=== PATIENT | female | born 1980 | race Caucasian/White ===

== ENCOUNTER 2021-07-21 08:56 | Emergency (ER) | payer BC, SELFPAY ==
[2021-07-21 09:02] VITALS: BP 119/76; PULSE 77; RESP 14; TEMP 36.6; O2SAT 98
[2021-07-21 09:10] VITALS: BP 119/76; PULSE 77; RESP 14; TEMP 36.6; O2SAT 98
--- NOTE | 2021-07-21 09:30 | ED.URI ---
HPI - URI/Sore Throat General Chief Complaint: Upper Respiratory Infection Stated Complaint: sinus congestion Time Seen by Provider: 07/21/21 09:21 Source: patient and RN notes reviewed Mode of arrival: ambulatory Limitations: no limitations History of Present Illness HPI Narrative: Patient presents today complaining of a 2-week history of nasal congestion, rhinorrhea, sinus pressure. She has tried Sudafed, Mucinex, Claritin, Zyrtec, Flonase. Symptoms are no longer improving. Denies sore throat, cough, fever. MD elicited complaint: rhinorrhea, nasal congestion and sinus pain Related Data Allergies Allergy/AdvReac Type Severity Reaction Status Date / Time No Known Allergies Allergy Verified 07/21/21 09:09 Review of Systems Review of Systems: CONSTITUTIONAL: Denies body aches, fever, chills, or sweats. EYES: Denies visual changes, redness, or discharge. ENT: Denies sore throat, or otalgia.+ Rhinorrhea, congestion, sinus pressure, sneezing CARDIOVASCULAR: Denies chest pain, palpitations, or edema. RESPIRATORY: Denies cough or dyspnea. GASTROINTESTINAL: Denies abdominal pain, nausea, vomiting, or diarrhea. GENITOURINARY: Denies dysuria or hematuria. SKIN: Denies rash, itching, or wounds. MUSCULOSKELETAL: Denies back pain, joint pain, or myalgia. NEUROLOGIC: Denies headache, numbness, tingling, or weakness. PSYCH: Denies depression or anxiety. PMFSH Comments At time of signature, I have reviewed and agree with nursing past medical, surgical, social and family history unless otherwise noted. Please see nursing chart for further information. There is no relevant family history pertinent to the presenting complaint Exam Narrative: GENERAL: Well-appearing, well-nourished, and in no acute distress. HEAD: Normocephalic, atraumatic. EYES: EOMI. No redness or drainage. Conjunctivae normal. ENT: Mucous membranes pink and moist. Nares congested. Bilateral swollen and erythematous nasal turbinates with purulent discharge. TMs normal bilaterally. Throat normal. Uvula midline. NECK: Normal AROM. Supple. No lymphadenopathy. CHEST: No respiratory distress. Clear to auscultation. HEART: Regular rate and rhythm. No murmur appreciated. Normal peripheral pulses. EXTREMITIES: Normal range of motion. No edema. SKIN: Warm, dry, no rash. Capillary refill normal. Normal skin turgor. NEURO: No focal deficits. Alert and oriented x3. Gait steady. PSYCH: Normal affect. No signs of depression or anxiety. Course Vital Signs Vital signs: Vital Signs Temperature 97.9 F 07/21/21 09:02 Pulse Rate 77 07/21/21 09:02 Respiratory Rate 14 07/21/21 09:02 Blood Pressure 119/76 07/21/21 09:02 Pulse Oximetry 98 07/21/21 09:02 Temperature 97.9 F 07/21/21 09:10 Pulse Rate 77 07/21/21 09:10 Respiratory Rate 14 07/21/21 09:10 Blood Pressure 119/76 07/21/21 09:10 Pulse Oximetry 98 07/21/21 09:10 Reviewed. Pt has been instructed to follow up with his PCP regarding his elevated blood pressure today. MDM - URI/Sore Throat Differential Diagnosis Differential diagnosis: Likely upper respiratory infection, otitis media, sinusitis, viral infection and other (Rhinitis) Critical Care Time Critical Care Time Critical Care Time: No Discharge Plan Discharge Clinical Impression: Sinusitis Qualifiers: Sinusitis location: unspecified location Chronicity: acute Recurrence: non-recurrent Qualified Code(s): J01.90 - Acute sinusitis, unspecified Patient Disposition: Home, Self-Care Condition: Stable Instructions: Antibiotic Form, Sinusitis (ED) Additional Instructions: Please take the doxycycline and prednisone as directed. You may continue [id number] medications such as Sudafed or Mucinex. Follow-up with your doctor in 3 to 4 days if symptoms are not improving. Patient Language: Sammarinese Prescriptions: New prednisone 50 mg tablet 50 mg PO DAILY 5 Days Qty: 5 RF: 0 doxycycline hyclate 100 mg table
== END 2021-07-21 09:38 | disposition home or self-care (01) ==
PROVIDERS: Emergency Provider Nurse Practitioner; PCP Internal Medicine
DX: J01.90 Acute sinusitis, unspecified (principal)
CPT/HCPCS: 99213; G0463